=== PATIENT | female | born 1950 | race Caucasian/White ===

== ENCOUNTER 2017-11-05 06:24 | Day surgery (SDC) | payer MEDICARE ==
[2017-11-02 18:08] VITALS: BMI 39.0
[~2017-11-05 06:24] MED LIST: HEPARIN SODIUM,PORCINE 5,000 UNIT/ML 1 ML VIAL SQ ONE; LACTATED RINGERS 1,000 ML IV SCH; MIDAZOLAM 2 MG/2 ML VIAL IV PRN; ONDANSETRON 4 MG/2 ML VIAL IVP ONE; ceFAZolin IN SWFI 2 GM/20 ML SYRINGE IVP ONE; fentaNYL (PF) 50 MCG/ML 2 ML AMP IV PRN
[2017-11-05 06:53] VITALS: RESP 16; TEMP 97.5
[2017-11-05] MEDS ORDERED: LIDOCAINE 1% 20 ML VIAL (10MG/ML) FOR IV START INTRADERMA ONE (07:00)
[2017-11-05 07:02] LABS: Glucose,Whole Blood 69 mg/dL (75-99)
[2017-11-05 07:05] LABS: HCT 32.4 % (34.0-46.0); HGB 11.1 gm/dL (11.4-16.0); MCH 30.9 pg (25.0-35.0); MCHC 34.2 g/dL (31.0-37.0); MCV 90.3 fL (80.0-100.0); Mean Platelet Volume 7.8; Platelet Count 248 k/uL (150-450); RBC 3.59 m/uL (3.80-5.40); RDW 15.9 % (11.5-15.5); WBC 6.1 k/uL (3.8-10.6)
[2017-11-05 07:18] LABS: Potassium 4.2 mmol/L (3.5-5.1)
[2017-11-05] MEDS ORDERED: DEXTROSE 50%-WATER 50 ML SYRINGE IVP STA (07:27)
[2017-11-05] MEDS ORDERED: PROPOFOL 10 MG/ML 20 ML VIAL IV ONE (07:53)
[2017-11-05] MEDS ORDERED: fentaNYL (PF) 50 MCG/ML 2 ML AMP ONE (07:53)
[2017-11-05] MEDS ORDERED: LIDOCAINE 1% INJ 10MG/ML (20 ML MDV) ONE (07:53)
[2017-11-05] MEDS ORDERED: SODIUM CHLORIDE 0.9% 50 ML with ceFAZolin 2,000 MG IV ONE ×2 (08:12)
[2017-11-05] MEDS ORDERED: LIDOCAINE 1% INJ 10MG/ML (20 ML MDV) SQ ONE ×2 (08:15)
[2017-11-05] MEDS ORDERED: HYDROcodone/APAP 5-325MG 1 EACH TAB PO PRN (08:45)
[2017-11-05] MEDS ORDERED: NALOXONE 0.4 MG/ML 1 ML VIAL IV PRN (08:45)
--- NOTE | 2017-11-05 08:47 | P.OP ---
Date of Procedure: 11/05/17 Procedure(s) Performed: PREOPERATIVE DIAGNOSIS: Renal failure POSTOPERATIVE DIAGNOSIS: Same PROCEDURE: Peritoneal dialysis catheter insertion SURGEON: Zoraida EBL: Minimal ANESTHESIA: Sedation plus local COMPLICATIONS: None OPERATIVE PROCEDURE: The patient was placed in the operative table in the supine position. Her abdomen was prepped and draped in usual sterile fashion. A small vertical incision was made in the left periumbilical location. Dissection down through the subcutaneous tissues took place using electrocautery. The anterior rectus was divided vertically using the scalpel. The rectus was bluntly. The posterior rectus was visualized. An 0 Vicryl pursestring was placed. A small opening in the posterior rectus fascia and peritoneum took place using a Metzenbaum scissors. There were no adhesions to the suture that was placed. The pigtail catheter was advanced into the pelvis over a stylette. No resistance was met. The inner cuff was secured to the fascia using the 0 Vicryl pursestring that was placed. The catheter was tunneled to an exit site in the right lateral lower quadrant. The catheter was connected to the 1 L bag of saline and approximated 800 mL of saline was easily introduced into the peritoneal cavity. The fluid was then allowed to evacuate. The majority of the fluid was returned. The anterior rectus fascia was then reapproximated using a running 0 Vicryl stitch. The subcutaneous tissues reprepped using 3-0 Vicryl sutures and the skin using 4-0 Monocryl sutures. The outpatient dialysis adapter was applied to the end of the catheter. A sterile dressings then applied after Steri-Strips were placed over the incision. DISPOSITION: Stable to recovery room
[2017-11-05 09:12] LABS: Glucose,Whole Blood 99 mg/dL (75-99)
[2017-11-05 09:15] VITALS: BP 151/83; PULSE 52
== END 2017-11-05 09:29 | disposition home or self-care (01) ==
LOC: OR 06:24
PROVIDERS: ATTEND Surgery
DX: I13.0 Hypertensive heart and chronic kidney disease with heart failure and stage 1 through stage 4 chronic kidney disease, or unspecified chronic kidney disease (principal); E11.22 Type 2 diabetes mellitus with diabetic chronic kidney disease; K21.9 Gastro-esophageal reflux disease without esophagitis; N18.9 Chronic kidney disease, unspecified; Z88.5 Allergy status to narcotic agent; J44.9 Chronic obstructive pulmonary disease, unspecified; G47.33 Obstructive sleep apnea (adult) (pediatric); Z99.89 Dependence on other enabling machines and devices; I50.9 Heart failure, unspecified; Z99.2 Dependence on renal dialysis; Z86.73 Personal history of transient ischemic attack (TIA), and cerebral infarction without residual deficits; Z79.4 Long term (current) use of insulin; Z83.3 Family history of diabetes mellitus; Z79.899 Other long term (current) drug therapy
CPT/HCPCS: 84132; 84520; 85027; 49421; C1752; J1644; J2405; J2001; J3010; J0690; J2704

== ENCOUNTER 2019-03-28 14:08 | Observation (INO) | payer MEDICARE ==
[2019-03-28 17:39] VITALS: BMI 33.7
[2019-03-28 17:57] LABS: Glucose,Whole Blood 141 mg/dL (75-99)
[2019-03-28 18:11] VITALS: RESP 18
[2019-03-28] MEDS ORDERED: NALOXONE 0.4 MG/ML 1 ML VIAL IV PRN (20:08)
[2019-03-28] MEDS ORDERED: NON FORMULARY DRUG (Carvedilol [Coreg] 25 MG) PO SCH (20:10)
[2019-03-28] MEDS ORDERED: ALPRAZolam 0.25 MG TAB PO PRN (20:12)
[2019-03-28] MEDS ORDERED: TEMAZEPAM 15 MG CAP PO PRN (20:12)
[2019-03-28] MEDS ORDERED: cloNIDine HCL 0.1 MG TAB PO PRN (20:12)
[2019-03-28 20:29] LABS: Glucose,Whole Blood 144 mg/dL (75-99)
--- NOTE | 2019-03-28 20:32 | XR ---
EXAMINATION TYPE: XR chest 1V portable DATE OF EXAM: 03/28/2019 COMPARISON: NONE HISTORY: Short of breath TECHNIQUE: Single frontal view of the chest is obtained. FINDINGS: There is blunting left costophrenic angle. Heart is enlarged. There is right central venou s catheter with tip in the superior vena cava. There are sternal wires. There are chest leads. IMPRESSION: Left pleural effusion and left lower lobe airspace infiltrate. No heart failure seen.
[2019-03-28 20:59] LABS: Anisocytosis Slight; Basophils # (A) 0.1 k/uL (0-0.2); Basophils % (A) 1 %; Eosinophils # (A) 0.1 k/uL (0-0.7); Eosinophils % (A) 1 %; HCT 35.2 % (34.0-46.0); HGB 11.2 gm/dL (11.4-16.0); Hypochromasia Slight; Lymphocytes # (A) 0.5 k/uL (1.0-4.8); Lymphocytes % (A) 13 %; MCH 30.4 pg (25.0-35.0); MCHC 31.7 g/dL (31.0-37.0); MCV 95.7 fL (80.0-100.0); Macrocytosis Slight; Monocytes # (A) 0.3 k/uL (0-1.0); Monocytes % (A) 8 %; Neutrophils # (A) 2.9 k/uL (1.3-7.7); Neutrophils % (A) 74 %; Platelet Count 202 k/uL (150-450); RBC 3.67 m/uL (3.80-5.40); RDW 18.2 % (11.5-15.5); WBC 3.9 k/uL (3.8-10.6)
[2019-03-28] MEDS ORDERED: METOPROLOL TARTRATE 25 MG TAB PO SCH (21:00)
[2019-03-28] MEDS: POTASSIUM CHLORIDE ER 20 MEQ TAB.ER PO SCH (21:04)
[2019-03-28] MEDS: HEPARIN SODIUM,PORCINE 5,000 UNIT/ML 1 ML VIAL SQ SCH (21:04)
[2019-03-28 21:14] LABS: Albumin 3.6 g/dL (3.5-5.0); Calcium 9.4 mg/dL (8.4-10.2); Magnesium 1.9 mg/dL (1.6-2.3); Potassium 4.1 mmol/L (3.5-5.1); Total Bilirubin 0.5 mg/dL (0.2-1.3); Total Protein 6.1 g/dL (6.3-8.2)
[2019-03-28] MEDS: hydrALAZINE HCL 50 MG TAB PO SCH (21:19)
[2019-03-28] MEDS: DOXAZOSIN 4 MG TAB PO SCH (21:19)
[2019-03-28] MEDS: INSULIN DETEMIR (LEVEMIR) 100 UNIT/ML SYR SQ SCH (21:19)
--- NOTE | 2019-03-28 22:55 | HP ---
HISTORY AND PHYSICAL DATE OF SERVICE: 03/28/2019 CHIEF COMPLAINT: Hypertension. HISTORY OF PRESENT ILLNESS: This 69-year-old woman with a past medical history of COPD, diabetes mellitus, chronic renal failure, kidney disease with hemodialysis, sleep apnea, anemia, CAD, CABG, being followed by Dr. Isidra Jackson in the outpatient setting, apparently was planned to have a fistula inserted on the right forearm tomorrow by Dr. Lewis. Apparently the patient had dialysis yesterday. Today the patient was in dialysis; residential through the dialysis, the blood pressure was elevated up to diastolic more than 100, and the patient was taken to [facility]. The [facility] discussed the case with me over the phone. The patient was transferred to [facility] for further evaluation and treatment. There is no history of any fever, rigors or chills, no history of headache, loss of consciousness, seizures. Blood pressure is still elevated. PAST MEDICAL HISTORY: 1. History of COPD. 2. Diabetes mellitus. 3. Chronic kidney disease, on hemodialysis. 4. Appendectomy. 5. CAD, CABG. HOME MEDICATIONS: 1. Hydralazine 100 mg p.o. t.i.d. 2. Norvasc 10 mg p.o. daily. 3. Renvela 1600 mg p.o. b.i.d. 4. K-Dur 20 mEq p.o. b.i.d. 5. Lopressor 25 mg p.o. b.i.d. 6. Zestril 5 mg p.o. daily. 7. Tresiba 10 units subcutaneously b.i.d. 8. Folic acid 0.8 p.o. daily. 9. Cardura 4 mg p.o. b.i.d. 10.Vitamin B12 5000 daily. 11.Plavix 75 mg p.o. daily. 12.Coreg 25 mg p.o. b.i.d. 13.Lipitor 40 mg p.o. daily. ALLERGIES: MORPHINE. FAMILY HISTORY: History of skin cancer in the family. SOCIAL HISTORY: No history of smoking. No history of alcohol intake. REVIEW OF SYSTEMS: ENT: Diminished hearing. Diminished vision. CARDIOVASCULAR SYSTEM: No angina, palpitations. Otherwise as mentioned earlier. RESPIRATORY SYSTEM: No cough, hemoptysis. GI: No nausea, vomiting. : As mentioned earlier. NERVOUS SYSTEM: No numbness, weakness. ALLERGY/IMMUNOLOGY: No asthma, hayfever. MUSCULOSKELETAL: As mentioned earlier. HEMATOLOGY/ONCOLOGY: No history of anemia. ENDOCRINE: Diabetes mellitus. CONSTITUTIONAL: As mentioned earlier. RHEUMATOLOGY: Negative. PSYCHIATRY: As mentioned earlier. NEUROLOGY: Negative. PHYSICAL EXAMINATION: Patient is alert, oriented x3. Pulse is 66, blood pressure 204/71, 204/114, respiration 18, temperature 98.5, pulse ox 96% on room air. HEENT: Conjunctivae normal. Oral mucosa moist. NECK: No jugular venous distention. No carotid bruit. No lymph node enlargement. CARDIOVASCULAR SYSTEM: S1, S2 muffled. Ejection systolic murmur, left sternal border, present. RESPIRATORY SYSTEM: Breath sounds diminished at the bases. A few scattered rhonchi. No crackles. ABDOMEN: Soft, obese, non-tender. No mass palpable. LEGS: Minimal bilateral leg edema. NERVOUS SYSTEM: Higher functions as mentioned earlier. Moves all 4 limbs. No focal motor or sensory deficit. LYMPHATICS: No lymph node palpable in neck, axillae or groin. SKIN: No ulcer, rash, bleeding. JOINTS: No active deforming arthropathy. LABS: WBC 3.9, hemoglobin 11.2. Sodium 136, potassium 4.1. Creatinine is 3.88. Accu- Cheks are noted. ASSESSMENT: 1. Accelerated uncontrolled hypertension with hypertensive urgency. 2. Chronic kidney disease, end-stage kidney disease, on hemodialysis. 3. Anemia, normocytic; anemia of chronic renal failure. 4. Chronic obstructive pulmonary disease. 5. Diabetes mellitus, type 2. 6. Gastroesophageal reflux disease. 7. Hypertension. 8. Hyperlipidemia. 9. Sleep apnea. 10.Obesity with a body mass index of 33.8. 11.Anemia. 12.Coronary artery disease, coronary artery bypass grafting history. 13.History of motion sickness. RECOMMENDATIONS AND DISCUSSION: In this 69-year-old woman who presented with multiple medical issues, at this time I recommend to continue current medications, continue symptomatic treatment. Otherwise, I would recommend increasing the dose of lisinopril to 10 mg daily. Give additional doses of hydralazine and amlodipine as well as metoprolol currently. Use p.r.n. clonidine and hydralazine. The dose of the metoprolol also may be increased. Will follow the patient closely and Nephrology will be consulted. Guarded prognosis. Further recommendations to follow. A copy of this dictation is being forwarded to Dr. Isidra Jackson, who is the primary physician. MMWILLL / IJN: [id number] / MTDD
[2019-03-28] MEDS: hydrALAZINE HCL 20 MG/ML 1 ML VIAL IVP PRN (23:25)
[2019-03-29] MEDS: hydrALAZINE HCL 20 MG/ML 1 ML VIAL IVP PRN (05:03)
[2019-03-29 06:25] LABS: Anisocytosis Slight; Basophils % (A) 1 %; Eosinophils # (A) 0.1 k/uL (0-0.7); Eosinophils % (A) 2 %; HCT 32.9 % (34.0-46.0); HGB 10.6 gm/dL (11.4-16.0); Hypochromasia Slight; Lymphocytes # (A) 0.5 k/uL (1.0-4.8); Lymphocytes % (A) 14 %; MCHC 32.3 g/dL (31.0-37.0); MCV 95.8 fL (80.0-100.0); Macrocytosis Slight; Mean Platelet Volume 7.9; Monocytes # (A) 0.3 k/uL (0-1.0); Monocytes % (A) 9 %; Neutrophils # (A) 2.4 k/uL (1.3-7.7); Neutrophils % (A) 71 %; Platelet Count 201 k/uL (150-450); RBC 3.43 m/uL (3.80-5.40); RDW 18.2 % (11.5-15.5); WBC 3.4 k/uL (3.8-10.6)
[2019-03-29 06:35] LABS: Calcium 9.4 mg/dL (8.4-10.2); Potassium 4.7 mmol/L (3.5-5.1)
[2019-03-29 06:47] LABS: Glucose,Whole Blood 113 mg/dL (75-99)
[2019-03-29] MEDS ORDERED: PANTOPRAZOLE 40 MG TABLET PO SCH (07:30)
[2019-03-29] MEDS ORDERED: ATORVASTATIN 40 MG TAB PO SCH (09:00)
[2019-03-29] MEDS ORDERED: amLODIPine 10 MG TAB PO SCH (09:00)
[2019-03-29] MEDS ORDERED: CYANOCOBALAMIN 500 MCG TAB PO SCH (09:00)
[2019-03-29] MEDS ORDERED: FOLIC ACID 1 MG TAB PO SCH (09:00)
[2019-03-29] MEDS ORDERED: METOPROLOL TARTRATE 50 MG TAB PO SCH (09:00)
[2019-03-29] MEDS ORDERED: LISINOPRIL 10 MG TAB PO SCH ×2 (09:00)
[2019-03-29] MEDS ORDERED: CLOPIDOGREL 75 MG TAB PO SCH (09:00)
[2019-03-29] MEDS: POTASSIUM CHLORIDE ER 20 MEQ TAB.ER PO SCH (09:17)
[2019-03-29] MEDS: SEVELAMER 800 MG TAB PO SCH ×2 (09:18→18:29)
[2019-03-29] MEDS: INSULIN DETEMIR (LEVEMIR) 100 UNIT/ML SYR SQ SCH (09:19)
[2019-03-29] MEDS: hydrALAZINE HCL 50 MG TAB PO SCH ×2 (09:19→18:28)
[2019-03-29] MEDS: DOXAZOSIN 4 MG TAB PO SCH (09:19)
[2019-03-29] MEDS: HEPARIN SODIUM,PORCINE 5,000 UNIT/ML 1 ML VIAL SQ SCH (09:25)
[2019-03-29 11:43] LABS: Glucose,Whole Blood 221 mg/dL (75-99)
[2019-03-29] MEDS ORDERED: ACETAMINOPHEN TAB 325 MG TAB PO PRN (13:39)
[2019-03-29 16:40] LABS: Glucose,Whole Blood 130 mg/dL (75-99)
--- NOTE | 2019-03-29 17:07 | CONS ---
CONSULTATION REASON FOR CONSULT: End-stage renal disease. HISTORY OF PRESENT ILLNESS: The patient is a 69-year-old female with end-stage renal disease, on hemodialysis on a Wednesday, Wednesday, Wednesday schedule. She was scheduled as outpatient for surgery for AV fistula today; however, when she was at dialysis yesterday the patient states that her blood pressure dropped and then it increased to above 100 mmHg systolic, and therefore she was transferred to [facility]. From [facility] the patient was transferred down to [facility]. She denies any chest pains. No nausea, vomiting, or abdominal pain. Blood pressure here has been about 150 to 170 mmHg. There was a reading of 204/71 initially. No fever, chills, nausea, vomiting, or abdominal pain. PAST MEDICAL HISTORY: Past medical history is significant for: 1. End-stage renal disease. 2. Coronary artery disease. 3. Anemia of chronic disease. 4. Obstructive sleep apnea. 5. COPD. 6. Type 2 diabetes. PAST SURGICAL HISTORY: 1. Appendectomy. 2. Coronary artery bypass surgery. 3. PD catheter placement and removal. MEDICATIONS: Medications at home prior to admission included: 1. Hydralazine. 2. Norvasc. 3. Renvela. 4. Potassium. 5. Lopressor. 6. Zestril. 7. Folic acid. 8. Cardura. 9. Vitamin B12. 10.Plavix. 11.Coreg. 12.Lipitor. ALLERGIES: ALLERGIES include MORPHINE. SOCIAL HISTORY: Negative for smoking, drug abuse, or alcohol abuse. REVIEW OF SYSTEMS: As per HPI; other systems negative. PHYSICAL EXAMINATION: On examination, the patient is comfortable, awake, alert, oriented x3, not in any acute distress. Blood pressure was 149/73, heart rate 56 per minute. Patient is afebrile. EXAMINATION OF THE HEART: S1 and S2. EXAMINATION OF LUNGS: Bilateral breath sounds are heard. ABDOMEN: Soft, nontender. LOWER EXTREMITIES: Examination of the lower extremities shows no significant edema. PHARMACY MANAGER EXAMINATION: Grossly intact. LABORATORY DATA: Labs show hemoglobin 10.6, white cell count 3.4. Sodium 137, potassium 4.7, albumin 3.6, magnesium 1.9. ASSESSMENT: 1. End-stage renal disease, on hemodialysis on a Wednesday, Wednesday, Wednesday schedule. I will arrange for hemodialysis today and patient can be discharged post dialysis. She will follow up as outpatient for her regular treatment on Wednesday, and if patient is scheduled for surgery, we can adjust her dialysis schedule as outpatient. 2. Hypertension, currently better controlled, possibly partly volume-sensitive. Will try UF of about 2 liters as tolerated. Currently patient is maintained on Norvasc, hydralazine, Zestril, Lopressor, Coreg, and p.r.n. clonidine. The Zestril has been increased. We will continue the current medications and monitor as outpatient. 3. Chronic kidney disease mineral bone disorder. 4. History of colon cancer. PLAN: Hemodialysis today. Continue current antihypertensive regimen. Patient can be discharged post dialysis. MMODL / IJN: [id number] /
[2019-03-29 18:53] VITALS: BP 143/76; PULSE 62; TEMP 98.7
--- NOTE | 2019-03-29 21:55 | DS ---
DISCHARGE SUMMARY DATE OF SERVICE: 03/29/2019 FINAL DIAGNOSES: 1. Accelerated uncontrolled hypertension with hypertensive urgency. 2. Chronic kidney end-stage disease, on hemodialysis. 3. Anemia, normocytic; anemia of chronic renal failure. 4. Chronic obstructive pulmonary disease. 5. Diabetes mellitus, type 2. 6. Gastroesophageal reflux disease. 7. Hypertension. 8. Hyperlipidemia. 9. History of sleep apnea. 10.Obesity with a body mass index of 33.8. 11.Anemia. 12.Coronary artery disease, coronary artery bypass grafting history. 13.History of motion sickness. DISCHARGE DISPOSITION: The patient will be discharged in stable condition with guarded prognosis. HISTORY OF PRESENT ILLNESS: This 69-year-old woman with a past medical history of multiple medical problems was admitted with uncontrolled accelerated hypertension as well as hypertensive urgency. The patient was treated symptomatically. Patient improved significantly. Dr. Lewis saw the patient and recommended outpatient followup with his surgery for graft surgery later. On exam, vitals are stable. CARDIOVASCULAR SYSTEM: S1, S2 muffled. ABDOMEN: Soft. NERVOUS SYSTEM: No focal deficit. DISCHARGE ADVICE AND MEDICATIONS: 1. Diet is cardiac. 2. Activity limited until followup. 3. Follow up with Dr. Isidra Jackson in one week. 4. Follow up with Dr. Lewis and Cardiology as recommended. 5. Apresoline 100 mg p.o. t.i.d. 6. Cardura 4 mg p.o. b.i.d. 7. Coreg 25 mg p.o. b.i.d. 8. Folic acid 1 mg p.o. daily. 9. K-Dur 20 mEq p.o. daily. 10.Lipitor 40 mg p.o. daily. 11.Nitrostat 0.4 sublingually p.r.n. 12.Norvasc 10 mg p.o. daily. 13.Plavix 75 mg p.o. daily. 14.Renvela 1600 mg p.o. b.i.d. 15.Tresiba 20 units subcutaneously b.i.d. 16.Vitamin B12 5000 daily. 17.Vitamin D3 2000 daily. 18.Zantac 150 mg p.o. b.i.d. 19.Lopressor 50 mg p.o. b.i.d. 20.Zestril 10 mg p.o. b.i.d. Once again, the patient will be discharged in stable condition with guarded prognosis. Follow up as recommended. ANSELMOL / LUIS FELIPEN: [id number] /
== END 2019-03-29 19:00 | disposition home or self-care (01) ==
LOC: 1SOBS 17:21
PROVIDERS: ADMIT Hospitalist; ATTEND Hospitalist
DX: I16.0 Hypertensive urgency (principal); I12.0 Hypertensive chronic kidney disease with stage 5 chronic kidney disease or end stage renal disease; N18.6 End stage renal disease; E11.22 Type 2 diabetes mellitus with diabetic chronic kidney disease; D63.1 Anemia in chronic kidney disease; J44.9 Chronic obstructive pulmonary disease, unspecified; I25.10 Atherosclerotic heart disease of native coronary artery without angina pectoris; Z99.2 Dependence on renal dialysis; E66.9 Obesity, unspecified; Z68.33 Body mass index [BMI] 33.0-33.9, adult; K21.9 Gastro-esophageal reflux disease without esophagitis; E78.5 Hyperlipidemia, unspecified; G47.33 Obstructive sleep apnea (adult) (pediatric); M89.9 Disorder of bone, unspecified; Z79.02 Long term (current) use of antithrombotics/antiplatelets; Z79.899 Other long term (current) drug therapy; Z88.5 Allergy status to narcotic agent; Z87.898 Personal history of other specified conditions; Z85.038 Personal history of other malignant neoplasm of large intestine; Z95.1 Presence of aortocoronary bypass graft; Z90.49 Acquired absence of other specified parts of digestive tract; Z80.8 Family history of malignant neoplasm of other organs or systems
CPT/HCPCS: 96372; 96374; 96376; 80053; 80048; 83735; 85025 ×2; 71045; G0257; G0378 ×2; G0379; J0360 ×2; J1644; 90935

== ENCOUNTER 2019-03-31 08:59 | Day surgery (SDC) | payer MEDICARE ==
[2019-03-30 12:14] VITALS: BMI 33.5
[~2019-03-31 08:59] MED LIST changes: +DEXAMETHASONE SOD PHOSPHATE 10 MG/ML 1 ML VIAL IV ONE; -HEPARIN SODIUM,PORCINE 5,000 UNIT/ML 1 ML VIAL SQ ONE; -ceFAZolin IN SWFI 2 GM/20 ML SYRINGE IVP ONE
[2019-03-31] MEDS ORDERED: SODIUM CHLORIDE 0.9% 1,000 ML IV ONE (10:00)
[2019-03-31 10:03] LABS: Glucose,Whole Blood 145 mg/dL (75-99)
[2019-03-31] MEDS ORDERED: MIDAZOLAM 2 MG/2 ML VIAL IV ONE (10:41)
--- NOTE | 2019-03-31 11:41 | P.ANPRN ---
Procedure Note - Anesthesia - Nerve Block Performed Right Supraclavicular Single Time Out Performed: Yes Date of Procedure: 03/31/19 Procedure Start Time: 10:40 Location of Patient Procedure: PreOp Indication: Acute Post-Operative Pain, Requested by Surgeon Sedation Type: Sedate with meaningful contact maintained Preparation: Sterile Prep, Sterile Dressing Position: Supine Catheter: None Needle Types: On-Q Needle Gauge: 20 Ultrasound used to visualize needle placement: Yes Ultrasound used to observe medication spread: Yes Injectate: 0.5% Ropivacaine (see comment for volume) (30 ml + decadron 10 mg) Blood Aspirated: No Pain Paresthesia on Injection Noted: No Resistance on Injection: Normal Image Stored and Saved: Yes Events: Uneventful and Well Tolerated
[2019-03-31] MEDS ORDERED: LIDOCAINE 1% INJ 10MG/ML (20 ML MDV) SQ ONE ×2 (14:59)
[2019-03-31] MEDS ORDERED: ROPIVACAINE 5 MG/ML 30 ML VIAL ONE (15:00)
[2019-03-31] MEDS ORDERED: PROPOFOL 10 MG/ML 20 ML VIAL IV ONE (15:00)
[2019-03-31] MEDS ORDERED: DEXAMETHASONE SOD PHOSPHATE 4 MG/ML 1 ML VIAL ONE (15:00)
[2019-03-31] MEDS ORDERED: MIDAZOLAM 2 MG/2 ML VIAL ONE (15:00)
[2019-03-31] MEDS ORDERED: PHENYLEPHRINE-0.9% NACL SYG 1 MG/10 ML SYRINGE ONE (15:00)
[2019-03-31] MEDS ORDERED: fentaNYL (PF) 50 MCG/ML 2 ML AMP ONE (15:00)
[2019-03-31] MEDS ORDERED: HEPARIN SODIUM,PORCINE 5,000 UNIT/ML 1 ML VIAL ONE (15:00)
[2019-03-31 17:28] VITALS: TEMP 96.8
[2019-03-31 17:48] VITALS: RESP 18
--- NOTE | 2019-03-31 18:00 | P.OP ---
Date of Procedure: 03/31/19 Description of Procedure: Preoperative diagnosis: End-stage renal disease on dialysis Postoperative diagnosis: Same Procedure: Right upper extremity AV fistula, Sol Surgeon: Sid Lewis D.O. Asst: Janine Elam D.O. EBL: 12cc IV fluids: see anesthesia records Urine output: Not measured Drains: None Complications: None Condition: None Operative indication and findings: The patient is a 69-year-old female with end- stage renal disease currently receiving dialysis through a chest wall tunneled dialysis catheter. She presents today for a right upper extremity AV fistula creation. Her preoperative imaging revealed adequate distal veins for a Sol radiocephalic fistula Procedure in detail: [The patient was taken to the operative suite and placed in supine position. A axillary block was previously performed. The right upper extremity was prepped and draped in usual sterile fashion. A preprocedure timeout was performed, all parties were in agreement. The ultrasound was utilized and distal cephalic vein was identified. At an area between the radial artery and the cephalic vein, incision was made after anesthetization of the skin. This was carried up through subcutaneous tissues and dissected to the radial artery. The artery was encircled with vessel loops proximally and distally and left loose. The cephalic vein was then dissected free through subcutaneous tissues and proportional cephalic vein. It was clamped distally and divided. The remnant was tied off with 4-0 silk. The surrounding tissues were then cleared circumferentially. The vein was serially dilated up to 4 mm. At that point was swung around to the level of the radial artery. 11 blade was utilized to create an arteriotomy. 6-0 silk stay sutures were placed. Utilizing 7-0 Prolene, an anastomosis created. Prior to completion of the anastomosis the arteries on the backbleed along with the vein. The anastomosis was completed the inflow was opened and into the vein followed by towards the distal artery. Doppler was used there was adequate signals proximally and distally with good flow through the vein. There was a good thrill. There was no visualized branches in the surgical field. The area was then irrigated. The subcutaneous tissues were reapproximated with 3-0 Vicryl. The skin was r eprepped with running 4-0 Vicryl. Steri-Strips and a dressing were placed. The patient was allowed awaken from anesthesia and transferred to the PACU in stable condition having tolerated her procedure well. The patient typically receives dialysis on Mondays, Wednesdays, and Fridays. At this time her as well as she are asking to go home. I called Dr. Rosa and we will plan to have her go to the dialysis clinic tomorrow for dialysis. She was found to be in stable condition for discharge. Plan - Discharge Summary Discharge Rx Participant: Yes New Discharge Prescriptions: No Action Doxazosin [Cardura] 4 mg PO BID Cyanocobalamin (Vitamin B-12) [Vitamin B-12] 5,000 mcg PO DAILY amLODIPine BESYLATE [Norvasc] 10 mg PO DAILY Carvedilol [Coreg] 25 mg PO BID Sevelamer [Renvela] 1,600 mg PO BID Potassium Chloride ER [K-Dur 20] 20 meq PO DAILY Clopidogrel [Plavix] 75 mg PO DAILY Atorvastatin [Lipitor] 40 mg PO DAILY Insulin Degludec [Tresiba] 20 units SQ BID hydrALAZINE HCL [Apresoline] 100 mg PO TID Ranitidine HCl [Zantac] 150 mg PO BID Nitroglycerin Sl Tabs [Nitrostat] 0.4 mg SUBLINGUAL Q5M PRN PRN Reason: Chest Pain Folic Acid 1 mg PO DAILY Cholecalciferol (Vitamin D3) [Vitamin D3] 2,000 unit PO DAILY Metoprolol Tartrate [Lopressor] 50 mg PO BID #60 tab Lisinopril [Zestril] 10 mg PO BID #60 tab Discharge Medication List Carvedilol [Coreg] 25 mg PO BID 11/02/17 [History] Cyanocobalamin (Vitamin B-12) [Vitamin B-12] 5,000 mcg PO DAILY 11/02/17 [History] Doxazosin [Cardura] 4 mg PO BID 11/02/17 [History] amLODIPine BESYLATE [Norvasc] 10 mg PO DAILY 11/02/17 [History] Atorvastatin [Lipitor] 40 mg PO DAILY 03/28/19 [History] Clopidogrel [Plavix] 75 mg PO DAILY 03/28/19 [History] Insulin Degludec [Tresiba] 20 units SQ BID 03/28/19 [History] Potassium Chloride ER [K-Dur 20] 20 meq PO DAILY 03/28/19 [History] Sevelamer [Renvela] 1,600 mg PO BID 03/28/19 [History] hydrALAZINE HCL [Apresoline] 100 mg PO TID 03/28/19 [History] Cholecalciferol (Vitamin D3) [Vitamin D3] 2,000 unit PO DAILY 03/29/19 [History] Folic Acid 1 mg PO DAILY 03/29/19 [History] Lisinopril [Zestril] 10 mg PO BID #60 tab 03/29/19 [Rx] Metoprolol Tartrate [Lopressor] 50 mg PO BID #60 tab 03/29/19 [Rx] Nitroglycerin Sl Tabs [Nitrostat] 0.4 mg SUBLINGUAL Q5M PRN 03/29/19 [History] Ranitidine HCl [Zantac] 150 mg PO BID 03/29/19 [History]
[2019-03-31 19:05] VITALS: BP 161/80; PULSE 54
== END 2019-03-31 19:07 | disposition home or self-care (01) ==
LOC: OR 08:59
PROVIDERS: ATTEND Surgery
DX: I12.0 Hypertensive chronic kidney disease with stage 5 chronic kidney disease or end stage renal disease (principal); E11.22 Type 2 diabetes mellitus with diabetic chronic kidney disease; N18.6 End stage renal disease; Z99.2 Dependence on renal dialysis; Z79.4 Long term (current) use of insulin; I25.10 Atherosclerotic heart disease of native coronary artery without angina pectoris; J44.9 Chronic obstructive pulmonary disease, unspecified; G47.33 Obstructive sleep apnea (adult) (pediatric); Z99.89 Dependence on other enabling machines and devices; K21.9 Gastro-esophageal reflux disease without esophagitis; Z95.1 Presence of aortocoronary bypass graft; Z97.2 Presence of dental prosthetic device (complete) (partial); Z79.02 Long term (current) use of antithrombotics/antiplatelets; Z79.899 Other long term (current) drug therapy; Z88.5 Allergy status to narcotic agent
CPT/HCPCS: 36821; 64415; 76942; 84132; J2250; J1644; J1100 ×2; J0690; J2405; J2001; J3010; J2795; J2370; J2704; 64413

== ENCOUNTER → 2019-08-01 | Outpatient (CLI) | payer MEDICARE ==
[2019-08-01 15:01] LABS: Potassium 4.3 mmol/L (3.5-5.1)
[2019-08-01 15:30] LABS: Anisocytosis Slight; HCT 26.5 % (34.0-46.0); HGB 8.1 gm/dL (11.4-16.0); Hypochromasia Marked; MCH 28.6 pg (25.0-35.0); MCHC 30.6 g/dL (31.0-37.0); MCV 93.8 fL (80.0-100.0); Mean Platelet Volume 7.8; Platelet Count 252 k/uL (150-450); RBC 2.83 m/uL (3.80-5.40); RDW 16.5 % (11.5-15.5); WBC 4.3 k/uL (3.8-10.6)
[2019-08-01 19:50] LABS: Eosinophils # (M) 0.04 k/uL (0-0.7); Lymphocytes # (M) 0.52 k/uL (1.0-4.8); Monocytes # (M) 0.47 k/uL (0-1.0); Neutrophils # (M) 3.27 k/uL (1.3-7.7); Neutrophils % (M) 76 %; Nucleated Red Blood Cells 0 /100 WBC (0-0); Total Cells Counted 100
== END | disposition home or self-care (01) ==
LOC: LABPAT 14:08
PROVIDERS: ATTEND Surgery
DX: Z01.818 Encounter for other preprocedural examination (principal); T82.9XXA Unspecified complication of cardiac and vascular prosthetic device, implant and graft, initial encounter
CPT/HCPCS: 36415; 80051; 82565; 82947; 85025

== ENCOUNTER 2019-10-24 06:04 | Day surgery (SDC) | payer MEDICARE ==
[2019-10-23 11:36] VITALS: BMI 33.5
[2019-10-24 07:03] VITALS: RESP 16; TEMP 97.4
[2019-10-24] MEDS ORDERED: SODIUM CHLORIDE 0.9% 1,000 ML IV ONE (07:03)
[2019-10-24] MEDS ORDERED: DEXTROSE 50% SYRINGE 50 ML IVP ONE (07:07)
[2019-10-24 07:08] LABS: Glucose,Whole Blood 71 mg/dL (75-99)
[2019-10-24 07:25] LABS: Glucose,Whole Blood 136 mg/dL (75-99)
[2019-10-24] MEDS ORDERED: PROPOFOL 10 MG/ML 20 ML VIAL IV ONE (07:28)
[2019-10-24] MEDS ORDERED: LIDOCAINE 1% INJ 10MG/ML (20 ML MDV) ONE (07:28)
[2019-10-24] MEDS ORDERED: MIDAZOLAM 2 MG/2 ML VIAL ONE (07:28)
[2019-10-24] MEDS ORDERED: ePHEDrine SULFATE/0.9% NACL/PF 50 MG/5 ML SYRINGE IV ONE (07:28)
[2019-10-24] MEDS ORDERED: KETAMINE 10 MG/ML 20 ML VIAL ONE (07:28)
[2019-10-24] MEDS ORDERED: fentaNYL (PF) 50 MCG/ML 2 ML AMP ONE (07:28)
[2019-10-24] MEDS ORDERED: HYDROmorphone (PF) 1 MG/ML ONE (07:28)
--- NOTE | 2019-10-24 07:28 | P.PN ---
Progress Note - Text Progress Note Date: 10/24/19 H&P reviewed and updated. The patient has a right upper extremity fistula with branches and presents for right upper extremity fistula revision with branch ligation under ultrasound guidance. Patient is in agreement and all questions answered.
[2019-10-24] MEDS ORDERED: ceFAZolin 2 GM in SODIUM CHLORIDE 0.9% 500 ML 500 ML IRRIGATION ONE (08:01)
[2019-10-24] MEDS ORDERED: LIDOCAINE 1% INJ 10MG/ML (20 ML MDV) SQ ONE (08:02)
[2019-10-24 09:24] VITALS: BP 107/67; PULSE 78
--- NOTE | 2019-10-24 09:32 | P.OP ---
Date of Procedure: 10/24/19 Preoperative Diagnosis: ESRD on HD Right upper extremity fistula dysfunction Postoperative Diagnosis: ESRD on HD Right upper extremity fistula dysfunction Procedure(s) Performed: Right upper extremity arteriovenous fistula revision with ligation of branches Anesthesia: MAC, local Surgeon: Sid Lewis Estimated Blood Loss (ml): 10 Pathology: none sent Condition: stable Disposition: PACU Indications for Procedure: 69 year old female with history of ESRD on HD found on ultrasound to have 3 branches just distal to recently created radiocephalic fistula which was stealing flow and decreasing function of the fistula. She presents today for ligation of branches and revision of fistula. Description of Procedure: After written and informed consent and all risks, benefits, and complications were described the patient was brought to the operative suite and laid in a supine position with right arm outstretched on an armboard. The area of the right arm was prepped and draped in usual sterile fashion, timeout was performed and antibiotics were given prior to incision. Ultrasound was utilized to locate the branches distal to the anastamosis and 3 branches were located. A small incision was created between the areas and dissection was carried down to the cephalic vein. The branches were located and ligated with silk suture. The fistula had an improved thrill and bruits after ligation and ultrasound demonstrated large dilated vein up to the elbow where it split to the cephalic and basilic veins. The incision was irrigated with antibiotic solution and closed in a multi-layer fashion. Skin was cleansed and dressings placed. The patient tolerated the procedure well and was sent to PACU for recovery.
== END 2019-10-24 10:16 | disposition home or self-care (01) ==
LOC: OR 06:04
PROVIDERS: ATTEND Surgery
DX: T82.898A Other specified complication of vascular prosthetic devices, implants and grafts, initial encounter (principal); C18.9 Malignant neoplasm of colon, unspecified; I12.0 Hypertensive chronic kidney disease with stage 5 chronic kidney disease or end stage renal disease; I25.10 Atherosclerotic heart disease of native coronary artery without angina pectoris; N18.6 End stage renal disease; Z99.2 Dependence on renal dialysis; E78.49 Other hyperlipidemia; Z95.1 Presence of aortocoronary bypass graft; E11.9 Type 2 diabetes mellitus without complications; Z79.4 Long term (current) use of insulin; Z97.2 Presence of dental prosthetic device (complete) (partial); Z98.890 Other specified postprocedural states; Z98.51 Tubal ligation status; Z82.49 Family history of ischemic heart disease and other diseases of the circulatory system; Z80.9 Family history of malignant neoplasm, unspecified; Z79.02 Long term (current) use of antithrombotics/antiplatelets; Z79.899 Other long term (current) drug therapy; Z88.5 Allergy status to narcotic agent; Z88.8 Allergy status to other drugs, medicaments and biological substances
CPT/HCPCS: 36833; 37607; 84132; J2250; J0690; J2001; J3010; J1170; J2704

== ENCOUNTER → 2019-12-12 | Day surgery (SDC) | payer MEDICARE ==
[2019-12-08 15:32] VITALS: BMI 33.2
[~2019-12-12] MED LIST changes: -DEXAMETHASONE SOD PHOSPHATE 10 MG/ML 1 ML VIAL IV ONE; +IOPAMIDOL-250 100ML BTL INTRAARTER ONE; -LACTATED RINGERS 1,000 ML IV SCH; +LIDOCAINE 1% INJ 10MG/ML (20 ML MDV) SQ ONE; -MIDAZOLAM 2 MG/2 ML VIAL IV PRN; -ONDANSETRON 4 MG/2 ML VIAL IVP ONE; +SODIUM CHLORIDE 0.9% 1,000 ML IV SCH; -fentaNYL (PF) 50 MCG/ML 2 ML AMP IV PRN
[2019-12-12 09:32] VITALS: PULSE 73; RESP 18; TEMP 98
[2019-12-12 09:33] LABS: Glucose,Whole Blood 108 mg/dL (75-99)
[2019-12-12 09:37] LABS: Basophils % (A) 1 %; Eosinophils # (A) 0.1 k/uL (0-0.7); Eosinophils % (A) 2 %; HCT 47.2 % (34.0-46.0); HGB 14.9 gm/dL (11.4-16.0); Hypochromasia Slight; Lymphocytes % (A) 23 %; MCH 26.2 pg (25.0-35.0); MCHC 31.6 g/dL (31.0-37.0); Mean Platelet Volume 8.6; Monocytes # (A) 0.4 k/uL (0-1.0); Monocytes % (A) 9 %; Neutrophils # (A) 2.8 k/uL (1.3-7.7); Neutrophils % (A) 64 %; Platelet Count 170 k/uL (150-450); RBC 5.69 m/uL (3.80-5.40); WBC 4.3 k/uL (3.8-10.6)
[2019-12-12 09:45] LABS: Potassium 5.4 mmol/L (3.5-5.1)
--- NOTE | 2019-12-12 11:43 | P.OP ---
Description of Procedure: Date: 12/12/2019 Preoperative diagnosis: End-stage renal disease on hemodialysis, right upper extremity fistula dysfunction Postoperative diagnosis: Right upper extremity fistula inflow stenosis Procedure: 1. Right Upper extremity fistulogram with ultrasound guided access, 2. Right AV fistula inflow stenosis percutaneous balloon venoplasty Surgeon: Sid Lewis DO Anesthesia : Local Estimated blood loss: Minimal Complications: None Condition: Stable Disposition: If unable to access the fistula then patient will likely need a loop AV graft. Indications: 69-year-old female with history of end-stage renal disease on hemodialysis via a right chest Andrew catheter and attempts have been made to access her right upper extremity Sol fistula with out success. She recently underwent ultrasound which demonstrated an area of stenosis at the inflow. She did have previous branches ligated to assist with maturation of the fistula. Operative narrative: After written informed consent was obtained the patient all risks benefits competitions were described the patient is brought to the [employer] and laid in a supine position with their right arm outstretched on an armboard. The area of the arm was prepped and draped in usual sterile fashion. Utilizing local anesthetic the fistula was accessed under ultrasound guidance an d a 4-Ukrainian sheath was placed. Fistulogram was then obtained demonstrating patent fistula with normal branch to the cephalic and basilic veins. No evidence of outflow stenosis or central stenosis. Outflow was then occluded and fistulogram was obtained of the inflow demonstrating stenosis just distal to the anastomosis as well as evidence of a valve. At that time utilizing ultrasound the AV fistula was accessed at the forearm in a retrograde fashion. A 6-Ukrainian sheath was placed followed by a Glidewire across the area of stenosis into the radial artery. Utilizing a 4 x 20 mm balloon balloon angioplasty and venoplasty was performed. Final fistulogram was obtained demonstrating some improvement of the stenosis approximately 20%. All guidewires and catheters were then removed suture was placed at the retrograde access for hemostasis. Hemostasis was assured the area was cleansed and the fistula was marked with a permanent marker for assistance for the hemodialysis center to access the fistula. Plan - Discharge Summary Discharge Rx Participant: No New Discharge Prescriptions: No Action Doxazosin [Cardura] 4 mg PO BID Cyanocobalamin (Vitamin B-12) [Vitamin B-12] 5,000 mcg PO DAILY amLODIPine BESYLATE [Norvasc] 10 mg PO DAILY Carvedilol [Coreg] 25 mg PO BID Sevelamer [Renvela] 1,600 mg PO BID Potassium Chloride ER [K-Dur 20] 20 meq PO DAILY Clopidogrel [Plavix] 75 mg PO DAILY Atorvastatin [Lipitor] 40 mg PO DAILY Insulin Degludec [Tresiba] 20 units SQ BID hydrALAZINE HCL [Apresoline] 100 mg PO TID Nitroglycerin Sl Tabs [Nitrostat] 0.4 mg SUBLINGUAL Q5M PRN PRN Reason: Chest Pain Folic Acid 1 mg PO DAILY Cholecalciferol (Vitamin D3) [Vitamin D3] 2,000 unit PO DAILY Metoprolol Tartrate [Lopressor] 50 mg PO BID #60 tab Lisinopril [Zestril] 10 mg PO BID #60 tab Pepcid 1 tab PO DAILY Discharge Medication List Carvedilol [Coreg] 25 mg PO BID 11/02/17 [History] Cyanocobalamin (Vitamin B-12) [Vitamin B-12] 5,000 mcg PO DAILY 11/02/17 [History] Doxazosin [Cardura] 4 mg PO BID 11/02/17 [History] amLODIPine BESYLATE [Norvasc] 10 mg PO DAILY 11/02/17 [History] Atorvastatin [Lipitor] 40 mg PO DAILY 03/28/19 [History] Clopidogrel [Plavix] 75 mg PO DAILY 03/28/19 [History] Insulin Degludec [Tresiba] 20 units SQ BID 03/28/19 [History] Potassium Chloride ER [K-Dur 20] 20 meq PO DAILY 03/28/19 [History] Sevelamer [Renvela] 1,600 mg PO BID 03/28/19 [History] hydrALAZINE HCL [Apresoline] 100 mg PO TID 03/28/19 [History] Cholecalciferol (Vitamin D3) [Vitamin D3] 2,000 unit PO DAILY 03/29/19 [History] Folic Acid 1 mg PO DAILY 03/29/19 [History] Lisinopril [Zestril] 10 mg PO BID #60 tab 03/29/19 [Rx] Metoprolol Tartrate [Lopressor] 50 mg PO BID #60 tab 03/29/19 [Rx] Nitroglycerin Sl Tabs [Nitrostat] 0.4 mg SUBLINGUAL Q5M PRN 11/06/19 [History] Pepcid 1 tab PO DAILY 10/23/19 [History]
[2019-12-12 12:49] VITALS: BP 186/88
--- NOTE | 2019-12-12 17:07 | IR ---
EXAMINATION TYPE: IR fistula/abscess/sinus tract DATE OF EXAM: 12/12/2019 CLINICAL HISTORY: Stenosis TECHNIQUE: Fluoroscopy. COMPARISON: None. FINDINGS: Fluoroscopic guidance was provided during procedure by performing physician in the cardiov ascular lab. A total of 5.6 minutes of fluoroscopic time was utilized during the procedure and 315 i mages were acquired. Please see operative report by performing physician for additional details. IMPRESSION: As Above.
== END ==
LOC: CATHCVL 09:00
PROVIDERS: ATTEND Surgery
DX: T82.858A Stenosis of other vascular prosthetic devices, implants and grafts, initial encounter (principal); N18.6 End stage renal disease; Z99.2 Dependence on renal dialysis; Z85.038 Personal history of other malignant neoplasm of large intestine; I25.2 Old myocardial infarction; Z95.1 Presence of aortocoronary bypass graft; Z98.51 Tubal ligation status; Z98.890 Other specified postprocedural states; Z82.49 Family history of ischemic heart disease and other diseases of the circulatory system; Z80.9 Family history of malignant neoplasm, unspecified; Z79.02 Long term (current) use of antithrombotics/antiplatelets; Z79.4 Long term (current) use of insulin; Z79.899 Other long term (current) drug therapy; Z88.5 Allergy status to narcotic agent
CPT/HCPCS: 36902; 80048; 85025; C1894; C1769 ×4; C1725; J2001; Q9966

== ENCOUNTER 2020-01-09 08:26 | Day surgery (SDC) | payer MEDICARE ==
[2020-01-02 12:05] VITALS: BMI 33.2
[~2020-01-09 08:26] MED LIST changes: +DEXAMETHASONE SOD PHOSPHATE 10 MG/ML 1 ML VIAL IV ONE; +HYDROmorphone 0.5 MG/0.5 ML SYRINGE IVP PRN; -IOPAMIDOL-250 100ML BTL INTRAARTER ONE; +LIDOCAINE 1% (10MG/ML) FOR IV START INTRADERMA PRN; -LIDOCAINE 1% INJ 10MG/ML (20 ML MDV) SQ ONE; +ONDANSETRON 4 MG/2 ML VIAL IVP ONE; -SODIUM CHLORIDE 0.9% 1,000 ML IV SCH
[2020-01-09 08:53] VITALS: RESP 16
[2020-01-09 09:16] LABS: Glucose,Whole Blood 78 mg/dL (75-99)
[2020-01-09] MEDS: LACTATED RINGERS 1,000 ML IV SCH ×2 (09:20→13:51)
[2020-01-09] MEDS ORDERED: ONDANSETRON 4 MG/2 ML VIAL ONE (09:22)
[2020-01-09 09:38] LABS: Calcium 9.8 mg/dL (8.4-10.2); Total Bilirubin 0.6 mg/dL (0.2-1.3)
[2020-01-09] MEDS: MIDAZOLAM 2 MG/2 ML VIAL IV PRN ×2 (10:03→10:49)
--- NOTE | 2020-01-09 10:17 | P.ANPRN ---
Procedure Note - Anesthesia - Nerve Block Performed Right Supraclavicular Time Out Performed: Yes (10:) Date of Procedure: 01/09/20 Procedure Start Time: : Procedure Stop Time: :14 Location of Patient: PreOp Indication: Acute Post-Operative Pain, Requested by Surgeon (DR Lewis) Sedation Type: Sedate with meaningful contact maintained Preparation: Sterile Prep Position: Supine Catheter: None Needle Types: Pajunk (22g) Ultrasound used to visualize needle placement: Yes Ultrasound used to observe medication spread: Yes Injectate: 0.5% Ropivacaine (see comment for volume) (20cc) Blood Aspirated: No Pain Paresthesia on Injection Noted: No Resistance on Injection: Normal Image Stored and Saved: Yes Events: Uneventful and Well Tolerated
[2020-01-09] MEDS ORDERED: KETAMINE 10 MG/ML 20 ML VIAL ONE (10:48)
[2020-01-09] MEDS ORDERED: HEPARIN SODIUM,PORCINE 5,000 UNIT/ML 1 ML VIAL ONE (10:48)
[2020-01-09] MEDS ORDERED: LIDOCAINE 1% INJ 10MG/ML (20 ML MDV) ONE (10:48)
[2020-01-09] MEDS ORDERED: ROPIVACAINE 5 MG/ML 30 ML VIAL ONE (10:48)
[2020-01-09] MEDS ORDERED: PROPOFOL 10 MG/ML 20 ML VIAL IV ONE (10:48)
[2020-01-09] MEDS ORDERED: fentaNYL (PF) 50 MCG/ML 2 ML AMP IVP ONE (10:50)
[2020-01-09] MEDS ORDERED: SODIUM CHLORIDE 0.9% 500 ML 500 ML IV ONE (10:51)
[2020-01-09] MEDS ORDERED: LIDOCAINE 1% INJ 10MG/ML (20 ML MDV) SQ ONE ×2 (11:21)
[2020-01-09] MEDS ORDERED: GELATIN SPONGE,ABSORB (LARGE) 1 EACH SPONGE TOPICAL ONE (11:23)
[2020-01-09] MEDS ORDERED: THROMBIN (BOVINE) 5,000 UNIT VIAL TOPICAL ONE (11:23)
[2020-01-09] MEDS ORDERED: ceFAZolin 2 GM in SODIUM CHLORIDE 0.9% 500 ML 500 ML IRRIGATION ONE (11:29)
[2020-01-09] MEDS ORDERED: HEPARIN SODIUM,PORCINE 2,000 UNIT in SODIUM CHLORIDE 0.9% 500 ML 500 ML IRRIGATION ONE (11:29)
--- NOTE | 2020-01-09 13:16 | P.OP ---
Date of Procedure: 01/09/20 Preoperative Diagnosis: Chronic renal failure, dysfunctional right upper extremity fistula Postoperative Diagnosis: Same Procedure(s) Performed: Right upper extremity loop arteriovenous graft Anesthesia: regional Surgeon: Sid Lewis Estimated Blood Loss (ml): 30 Pathology: none sent Condition: stable Disposition: PACU Indications for Procedure: 69-year-old female with end-stage renal disease on hemodialysis via right tunneled catheter who previously had a right wrist Sol fistula which is patent but is unable to be accessed per the dialysis center. She presents today for loop graft placement. Description of Procedure: After written informed consent was obtained the patient all risks benefits and competitions were described patient is brought to the operative suite and laid in a supine position with the right arm outstretched on an armboard. The area of the arm was then prepped and draped in usual sterile fashion after appropriate anesthetic was performed per the anesthesiologist. A timeout was performed in normal fashion antibiotics were administered prior to incision. A transverse incision was then created just distal to the elbow and dissection was carried down to the antecubital vein and this was dissected free in a circu mferential manner. Proximal and distal control was obtained with vessel loops. Attention was then placed to the artery and the brachial artery was then dissected free in a circumferential manner and controlled with vessel loops for the proximal and distal aspect. A tunnel was then created in a loop fashion with a counterincision made in the forearm and a 4-7 mm Luna propatent graft was tunneled in a loop fashion. Patient was then administered heparin. Arterial anastomosis was then performed after arteriotomy was created in the brachial artery and extended with Pott Vizcaino scissors. We 4 mm aspect of the graft was then spatulated in normal fashion and anastomosis was created with 6-0 Prolene suture in a running fashion. Control was then released into the graft revealing good pulsatile blood flow. Distal control of the artery was then released. Assessment of the radial artery demonstrated good pulse. The anastomosis was then performed. Venotomy was created with 11 blade scalpel and extended with Pott Vizcaino scissors. A 7 mm aspect of the graft was then spatulated in normal fashion and anastomosis was created with 6-0 Prolene suture in a running fashion. Prior to last sutures being placed control was released revealing good backbleeding from the vein. The graft was flushed with heparin saline. Control was then released revealing good pulsatile blood flow within the vein with a good palpable thrill noted. Hemostasis was then assured with Gelfoam and thrombin. Incisions were then closed in a multilayer fashion. Skin was cleansed and dressings were placed. The patient tolerated the procedure well and was sent to PACU for recovery. Plan - Discharge Summary Discharge Rx Participant: No New Discharge Prescriptions: No Action RX: Doxazosin [Cardura] 4 mg PO BID RX: Cyanocobalamin (Vitamin B-12) [Vitamin B-12] 5,000 mcg PO DAILY RX: amLODIPine BESYLATE [Norvasc] 10 mg PO DAILY RX: Carvedilol [Coreg] 25 mg PO BID RX: Sevelamer [Renvela] 1,600 mg PO BID RX: Potassium Chloride ER [K-Dur 20] 20 meq PO DAILY RX: Clopidogrel [Plavix] 75 mg PO DAILY RX: Atorvastatin [Lipitor] 40 mg PO DAILY RX: Insulin Degludec [Tresiba] 20 units SQ BID PRN PRN Reason: hyperglycemia RX: hydrALAZINE HCL [Apresoline] 100 mg PO TID RX: Nitroglycerin Sl Tabs [Nitrostat] 0.4 mg SUBLINGUAL Q5M PRN PRN Reason: Chest Pain RX: Folic Acid 1 mg PO DAILY RX: Cholecalciferol (Vitamin D3) [Vitamin D3] 2,000 unit PO DAILY RX: Metoprolol Tartrate [Lopressor] 50 mg PO BID #60 tab RX: lisinopriL [Zestril] 10 mg PO BID #60 tab Pepcid 1 tab PO DAILY Discharge Medication List RX: Carvedilol [Coreg] 25 mg PO BID 11/02/17 [History] RX: Cyanocobalamin (Vitamin B-12) [Vitamin B-12] 5,000 mcg PO DAILY 11/02/17 [History] RX: Doxazosin [Cardura] 4 mg PO BID 11/02/17 [History] RX: amLODIPine BESYLATE [Norvasc] 10 mg PO DAILY 11/02/17 [History] RX: Atorvastatin [Lipitor] 40 mg PO DAILY 03/28/19 [History] RX: Clopidogrel [Plavix] 75 mg PO DAILY 03/28/19 [History] RX: Insulin Degludec [Tresiba] 20 units SQ BID PRN 03/28/19 [History] RX: Potassium Chloride ER [K-Dur 20] 20 meq PO DAILY 03/28/19 [History] RX: Sevelamer [Renvela] 1,600 mg PO BID 03/28/19 [History] RX: hydrALAZINE HCL [Apresoline] 100 mg PO TID 03/28/19 [History] RX: Cholecalciferol (Vitamin D3) [Vitamin D3] 2,000 unit PO DAILY 03/29/19 [History] RX: Folic Acid 1 mg PO DAILY 03/29/19 [History] RX: Metoprolol Tartrate [Lopressor] 50 mg PO BID #60 tab 03/29/19 [Rx] RX: Nitroglycerin Sl Tabs [Nitrostat] 0.4 mg SUBLINGUAL Q5M PRN 03/29/19 [History] RX: lisinopriL [Zestril] 10 mg PO BID #60 tab 03/29/19 [Rx] Pepcid 1 tab PO DAILY 10/23/19 [History] Follow up Appointment(s)/Referral(s): Sid Lewis DO [STAFF PHYSICIAN] - 2 Weeks Discharge Disposition: HOME SELF-CARE
[2020-01-09 13:31] VITALS: TEMP 97.3
[2020-01-09 14:03] LABS: Glucose,Whole Blood 92 mg/dL (75-99)
[2020-01-09 14:12] VITALS: BP 168/74; PULSE 66
== END 2020-01-09 14:33 | disposition home or self-care (01) ==
LOC: OR 08:26
PROVIDERS: ATTEND Surgery
DX: T82.9XXA Unspecified complication of cardiac and vascular prosthetic device, implant and graft, initial encounter (principal); N18.6 End stage renal disease; I25.2 Old myocardial infarction; E78.5 Hyperlipidemia, unspecified; I12.0 Hypertensive chronic kidney disease with stage 5 chronic kidney disease or end stage renal disease; J44.9 Chronic obstructive pulmonary disease, unspecified; G47.33 Obstructive sleep apnea (adult) (pediatric); K21.9 Gastro-esophageal reflux disease without esophagitis; Z99.2 Dependence on renal dialysis; Z97.2 Presence of dental prosthetic device (complete) (partial); Z95.1 Presence of aortocoronary bypass graft; Z88.5 Allergy status to narcotic agent; Z88.8 Allergy status to other drugs, medicaments and biological substances; Z86.73 Personal history of transient ischemic attack (TIA), and cerebral infarction without residual deficits; Z79.899 Other long term (current) drug therapy; Z79.4 Long term (current) use of insulin; Z79.02 Long term (current) use of antithrombotics/antiplatelets; Z91.89 Other specified personal risk factors, not elsewhere classified
CPT/HCPCS: 36830; 80053; L8670; J2250; J1644; J1100; J0690; J2405; J2001; J3010; J2795; J2704; 64999; 76942

== ENCOUNTER → 2021-07-01 | Outpatient (CLI) | payer MEDICARE ==
[2021-07-01 23:28] LABS: HCT 29.7 % (37.2-46.3); HGB 8.8 g/dL (12.0-15.0); MCH 33.5 pg (27.0-32.0); MCHC 29.6 g/dL (32.0-37.0); MCV 112.9 fL (80.0-97.0); Mean Platelet Volume 10.5 fL (9.5-12.2); NRBC Per 100 WBC 0 /100 WBCS (0.0-0.0); Platelet Count 208 X 10*3/uL (140-440); RBC 2.63 X 10*6/uL (4.10-5.20); RDW 17.7 % (11.5-14.5); WBC 6.27 X 10*3/uL (4.50-10.00)
[2021-07-01 23:40] LABS: African American GFR (CKD) 10.5 (60.0-200.0); Anion Gap 17.5 mmol/L (10.00-18.00); Blood Urea Nitrogen 23.9 mg/dL (9.0-27.0); Carbon Dioxide 23.5 mmol/L (20.0-27.5); Non-African American GFR(CKD) 9.1 (60.0-200.0); Potassium 4.8 mmol/L (3.5-5.5)
[2021-07-02 00:19] LABS: Basophils # (A) 0.05 X 10*3/uL (0.00-0.10); Basophils % (A) 0.8 %; Eosinophils # (A) 0.07 X 10*3/uL (0.04-0.35); Eosinophils % (A) 1.1 %; Lymphocytes # (A) 1.19 X 10*3/uL (0.90-5.00); Monocytes # (A) 0.65 X 10*3/uL (0.20-1.00); Monocytes % (A) 10.4 %; Neutrophils # (A) 4.25 X 10*3/uL (1.80-7.70); Neutrophils % (A) 67.7 %
== END | disposition home or self-care (01) ==
LOC: LABPAT 15:17
PROVIDERS: ATTEND Surgery
DX: Z01.812 Encounter for preprocedural laboratory examination (principal); N18.6 End stage renal disease
CPT/HCPCS: 80051; 82565; 84520; 85025

== ENCOUNTER 2021-08-11 07:11 | Day surgery (SDC) | payer MEDICARE ==
[2021-08-08 08:45] VITALS: BMI 30.4
[~2021-08-11 07:11] MED LIST changes: -DEXAMETHASONE SOD PHOSPHATE 10 MG/ML 1 ML VIAL IV ONE; +DEXAMETHASONE SOD PHOSPHATE 4 MG/ML 1 ML VIAL IV ONE; +LACTATED RINGERS 1,000 ML IV SCH; +MIDAZOLAM 2 MG/2 ML VIAL IV PRN
[2021-08-11 08:09] LABS: Glucose,Whole Blood 121 mg/dL (75-99)
[2021-08-11 08:15] VITALS: RESP 18; TEMP 97.3
[2021-08-11] MEDS ORDERED: SODIUM CHLORIDE 0.9% 1,000 ML IV ONE (08:42)
[2021-08-11] MEDS ORDERED: MIDAZOLAM 2 MG/2 ML VIAL IV ONE ×2 (08:46→08:48)
[2021-08-11 08:56] LABS: Albumin 4.4 g/dL (3.5-5.0); Calcium 9.7 mg/dL (8.4-10.2); Total Bilirubin 0.7 mg/dL (0.2-1.3); Total Protein 7.4 g/dL (6.3-8.2)
[2021-08-11 09:05] LABS: Potassium 6.3 mmol/L (3.5-5.1)
[2021-08-11] MEDS ORDERED: PROPOFOL 10 MG/ML 20 ML VIAL IV ONE (09:28)
[2021-08-11] MEDS ORDERED: SODIUM CHLORIDE 0.9% (PF) 10 ML VIAL ONE (09:28)
[2021-08-11] MEDS ORDERED: ROPIVACAINE 5 MG/ML 30 ML VIAL ONE (09:28)
[2021-08-11] MEDS ORDERED: HYDROmorphone (PF) 1 MG/ML ONE (09:28)
[2021-08-11] MEDS ORDERED: fentaNYL (PF) 50 MCG/ML 2 ML AMP ONE (09:28)
[2021-08-11] MEDS ORDERED: SODIUM BICARB 8.4% 50 ML SYR (1 MEQ/ML) ONE (09:28)
[2021-08-11] MEDS ORDERED: MIDAZOLAM 2 MG/2 ML VIAL ONE (09:28)
[2021-08-11] MEDS ORDERED: CALCIUM CHLORIDE 100 MG/ML 10 ML SYRINGE ONE (09:28)
[2021-08-11] MEDS ORDERED: LIDOCAINE 1% INJ 10MG/ML (20 ML MDV) SQ ONE ×3 (09:49)
[2021-08-11] MEDS ORDERED: ceFAZolin 2,000 MG in SODIUM CHLORIDE 0.9% 500 ML IRRIGATION ONE (09:59)
[2021-08-11] MEDS ORDERED: HEPARIN SODIUM,PORCINE 2,000 UNIT in SODIUM CHLORIDE 0.9% 500 ML 500 ML IRRIGATION ONE (09:59)
--- NOTE | 2021-08-11 10:10 | P.ANPRN ---
Procedure Note - Anesthesia - Nerve Block Performed Right Supraclavicular Single Time Out Performed: Yes (0845) Date of Procedure: 08/11/21 Procedure Start Time: 08:45 Procedure Stop Time: 08:51 Location of Patient: PreOp Indication: Acute Post-Operative Pain, Requested by Surgeon Sedation Type: Sedate with meaningful contact maintained Preparation: Sterile Prep Position: Sitting Catheter: None Needle Types: Pajunk Needle Gauge: 21 Ultrasound used to visualize needle placement: Yes Ultrasound used to observe medication spread: Yes Injectate: 0.5% Ropivacaine (see comment for volume) (12 mL of 0.5% ropivacaine mixed with 8 mL of preservative free normal saline injected after intermittent negative aspiration a total dose of 20 mL.) Blood Aspirated: No Pain Paresthesia on Injection Noted: No Resistance on Injection: Normal Image Stored and Saved: Yes Events: Uneventful and Well Tolerated
[2021-08-11 13:19] VITALS: BP 124/82; PULSE 88
--- NOTE | 2021-08-19 22:13 | P.OP ---
Date of Procedure: 08/11/21 Preoperative Diagnosis: End-stage renal disease Postoperative Diagnosis: Same Procedure(s) Performed: Right upper extremity basilic vein transposition Anesthesia: BHAVIK Surgeon: Sid Lewis Estimated Blood Loss (ml): 25 Pathology: none sent Condition: stable Disposition: PACU Indications for Procedure: 71-year-old female With history of end-stage renal disease on hemodialysis and recent occlusion of right upper extremity arteriovenous graft presents to the hospital for new access creation basilic vein transposition. Description of Procedure: After written and informed consent was obtained and the patient all risks benefits and palpitations were described the patient was brought to the operative suite in the supine position with the right arm outstretched on an armboard.. The right arm was prepped and draped in usual sterile fashion after appropriate anesthetic was performed per the anesthesiologist. A timeout was performed normal fashion and a boxer administered prior to incisions. Medial incision of the upper arm was then created and dissection was carried down to the basilic vein. The basilic vein was then dissected free in a circumferential manner. This was dissected from the elbow to the axillary region with 2 other incisions created. Once completely dissected and branches were ligated the vein was ligated distally the elbow and then tunneled from the axilla to the incision at the medial aspect of the upper arm. The brachial artery was then dissected free in a circumferential manner controlled proximally and distally. Patient was then administered heparin. Arteriotomy was created at the brachial artery and extended with Kaur scissors. The vein was then spatulated and an end-to-side anastomosis was created with 6-0 Prolene suture. Once completed and control was released removing good thrill within the fistula. The incisions were then irrigated and hemostasis was assured with Gelfoam and thrombin. The incisions were then closed in a multilayer fash skin was cleansed and dressings were placed. Patient tolerated procedure well and had a palpable thrill at the conclusion of the procedure.
== END 2021-08-11 13:47 | disposition home or self-care (01) ==
LOC: OR 07:11
PROVIDERS: ATTEND Surgery
DX: E11.22 Type 2 diabetes mellitus with diabetic chronic kidney disease (principal); I12.0 Hypertensive chronic kidney disease with stage 5 chronic kidney disease or end stage renal disease; N18.6 End stage renal disease; Z99.2 Dependence on renal dialysis; I25.10 Atherosclerotic heart disease of native coronary artery without angina pectoris; E78.5 Hyperlipidemia, unspecified; G47.33 Obstructive sleep apnea (adult) (pediatric); J44.9 Chronic obstructive pulmonary disease, unspecified; I25.2 Old myocardial infarction; Z95.1 Presence of aortocoronary bypass graft; Z85.038 Personal history of other malignant neoplasm of large intestine; Z79.899 Other long term (current) drug therapy; Z79.02 Long term (current) use of antithrombotics/antiplatelets; Z88.5 Allergy status to narcotic agent; Z88.8 Allergy status to other drugs, medicaments and biological substances; Z90.49 Acquired absence of other specified parts of digestive tract; Z90.89 Acquired absence of other organs; Z98.51 Tubal ligation status; Z97.2 Presence of dental prosthetic device (complete) (partial)
CPT/HCPCS: 64415; 76942; 80053; 36819; J2250; J1644; J0690 ×2; J2405; J2001; J3010; J1170; J2795; J2704